=== PATIENT | female | born 1950 | race Caucasian/White ===

== ENCOUNTER 2017-04-16 08:23 | Day surgery (SDC) | payer MEDICARE ==
[2017-04-12 15:21] VITALS: BMI 27.1
[~2017-04-16 08:23] MED LIST: LACTATED RINGERS 1,000 ML IV SCH
[2017-04-16 08:49] VITALS: TEMP 97.8
[2017-04-16] MEDS ORDERED: LIDOCAINE 1% 20 ML VIAL (10MG/ML) FOR IV START INTRADERMA ONE (08:58)
[2017-04-16] MEDS ORDERED: PROPOFOL 10 MG/ML 20 ML VIAL IV ONE (09:31)
[2017-04-16] MEDS ORDERED: LIDOCAINE 1% INJ 10MG/ML (20 ML MDV) ONE (09:31)
--- NOTE | 2017-04-16 09:59 | P.PCN ---
Date of Procedure: 04/16/17 Preoperative Diagnosis: Postoperative Diagnosis: Procedure(s) Performed: Procedure: Total colonoscopy. Preoperative diagnosis: Screening for neoplasia, patient has family history of colon cancer in her father. Postoperative diagnosis: Exam within normal limits. Preparation: HalfLytely prep. Sedation: Was provided by anesthesia. Brief clinical history: The patient is a 66-year-old female who is scheduled for this evaluation for screening for neoplasia because of family history of colon cancer in her dad. Her last examination was in July 2010. She has no abdominal complaints, bleeding or anemia. Procedure: With the patient on her left lateral decubitus position and after informed consent and adequate sedation, the perianal area was inspected and it did not show any fissures or fistulas. There were no masses felt on digital rectal examination. The Olympus CFQ 160L video colonoscope was then inserted in the rectum in the usual fashion and advanced to the cecum. The preparation was good, the mucosa appeared healthy. No polyps or tumors were seen or any obvious diverticular disease or other pathology. I retroflexed the endoscope in the rectum before the endoscope was withdrawn. The patient tolerated the procedure well. Plan: The patient was reassured. She will follow-up with you as planned and I recommended repeat exam in 5 years. Implants: Indications for Procedure: Operative Findings: Description of Procedure:
[2017-04-16 10:46] VITALS: BP 170/88; PULSE 60; RESP 18
== END 2017-04-16 10:47 | disposition home or self-care (01) ==
LOC: ORWHC2ENDO 08:23
DX: Z12.11 Encounter for screening for malignant neoplasm of colon (principal); Z80.0 Family history of malignant neoplasm of digestive organs; I10 Essential (primary) hypertension; E78.5 Hyperlipidemia, unspecified; Z91.030 Bee allergy status; Z79.899 Other long term (current) drug therapy
CPT/HCPCS: J2001; J2704; G0105

== ENCOUNTER → 2017-04-22 | Outpatient (CLI) | payer MEDICARE ==
--- NOTE | 2017-04-23 10:51 | MM ---
Reason for exam: screening (asymptomatic). Last mammogram was performed 1 year ago. History: Patient is postmenopausal. Family history of breast cancer in maternal aunt at age 50 and breast cancer in cousin at age 50. Took estrogen for 10 years beginning at age 35. Physical Findings: A clinical breast exam by your physician is recommended on an annual basis and results should be correlated with mammographic findings. MG 3D Screening Mammo W/Cad Bilateral CC and MLO view(s) were taken. Prior study comparison: April 16, 2016, bilateral MG 3d screening mammo w/cad. March 25, 2014, bilateral MG screening mammo w CAD. The breast tissue is heterogeneously dense. This may lower the sensitivity of mammography. No significant changes when compared with prior studies. ASSESSMENT: Benign, BI-RAD 2 RECOMMENDATION: Routine screening mammogram of both breasts in 1 year.
== END | disposition home or self-care (01) ==
LOC: RADMAMWWP 11:20
PROVIDERS: ATTEND Family Medicine
DX: Z12.31 Encounter for screening mammogram for malignant neoplasm of breast (principal)
CPT/HCPCS: 77063; G0202

== ENCOUNTER → 2019-04-14 | Outpatient (CLI) | payer MEDICARE ==
--- NOTE | 2019-04-14 10:08 | MM ---
Reason for exam: screening (asymptomatic). Last mammogram was performed 2 years ago. History: Patient is postmenopausal. Family history of breast cancer in maternal aunt at age 50 and breast cancer in cousin at age 50. Took estrogen for 10 years beginning at age 35. Physical Findings: A clinical breast exam by your physician is recommended on an annual basis and results should be correlated with mammographic findings. MG 3D Screening Mammo W/Cad Bilateral CC and MLO view(s) were taken. Prior study comparison: April 22, 2017, bilateral MG 3d screening mammo w/cad. April 16, 2016, bilateral MG 3d screening mammo w/cad. The breast tissue is heterogeneously dense. This may lower the sensitivity of mammography. Architectural distortion in right upper outer quadrant at middle and posterior depth and left upper outer quadrant at posterior depth. ASSESSMENT: Incomplete: need additional imaging evaluation, BI-RAD 0 RECOMMENDATION: Special view mammogram and ultrasound of both breasts. [facility] will attempt to contact patient to return for supplemental views and ultrasound.
== END | disposition home or self-care (01) ==
LOC: RADMAMWWP 07:55
PROVIDERS: ATTEND Family Medicine
DX: Z12.31 Encounter for screening mammogram for malignant neoplasm of breast (principal)
CPT/HCPCS: 77063; 77067

== ENCOUNTER → 2019-04-23 | Outpatient (CLI) | payer MEDICARE ==
--- NOTE | 2019-04-24 08:14 | MM ---
Reason for exam: additional evaluation requested from abnormal screening. Last mammogram was performed less than 1 month ago. History: Patient is postmenopausal. Family history of breast cancer in maternal aunt at age 50 and breast cancer in cousin at age 50. Took estrogen for 10 years beginning at age 35. Physical Findings: Nurse did not find any significant physical abnormalities on exam. MG 3D Work Up W/Cad BERRY Bilateral spot compression CC, spot compression MLO, and LM view(s) were taken. Prior study comparison: April 14, 2019, bilateral MG 3d screening mammo w/cad. April 22, 2017, bilateral MG 3d screening mammo w/cad. The breast tissue is heterogeneously dense. This may lower the sensitivity of mammography. Focal asymmetry middle right CC view, upper outer quadrant, posterior on left MLO view. This finding is changed when compared with previous exams. These results were verbally communicated with the patient and result sheet given to the patient on 04/23/19. ASSESSMENT: Suspicious, BI-RAD 4 RECOMMENDATION: Surgical consultation, breast MRI, and stereotactic core biopsy of both breasts. (3D) Patient will follow up in [place] with surgeon.
--- NOTE | 2019-04-24 08:16 | USB ---
Reason for exam: additional evaluation requested from abnormal screening. History: Patient is postmenopausal. Family history of breast cancer in maternal aunt at age 50 and breast cancer in cousin at age 50. Took estrogen for 10 years beginning at age 35. US Breast Workup Limited BERRY Right limited breast ultrasound including focal area of concern, retroareolar and axilla demonstrates a 0.4 x 0.3 x 0.4cm cystic lesion at 12 o'clock. Left limited breast ultrasound including focal area of concern, retroareolar and axilla demonstrates no cystic or solid lesion seen. These results were verbally communicated with the patient and result sheet given to the patient on 04/23/19. ASSESSMENT: Benign, BI-RAD 2 RECOMMENDATION: Surgical consultation, breast MRI, and stereotactic core biopsy of both breasts. (3D) Patient will follow up in [place] with surgeon.
== END | disposition home or self-care (01) ==
LOC: RADMAMWWP 14:14
PROVIDERS: ATTEND Family Medicine
DX: R92.8 Other abnormal and inconclusive findings on diagnostic imaging of breast (principal)
CPT/HCPCS: 77066; 76642; G0279; 77062

== ENCOUNTER → 2019-04-30 | Outpatient (CLI) | payer MEDICARE ==
[2019-04-30 11:26] VITALS: BP 162/88; PULSE 68; RESP 18; TEMP 97.9; BMI 26.7
--- NOTE | 2019-04-30 12:25 | P.GSHP ---
History of Present Illness H&P Date: 04/30/19 Chief Complaint: Abnormal mammogram bilateral The patient is a 68 -year-old white female status post bilateral mammogram performed on [id number]. Initially it was recommended that she undergo a bilateral breast MRI and bilateral stereotactic core biopsies. The patient's radiographs were reviewed with the radiologist felt that there were no lesions of concern to warrant biopsy at this time and an MRI was not warranted either. It was recommended that she undergo bilateral repeat mammograms in 6 months. The had not had a mammogram for 2 years. The patient does not feel anything of concern in her breast at this time. The patient is a resident of [place] and will most likely have her repeat radiographs done in [place]. Family History: maternal aunt: of breast cancer (60's) maternal cousin(two): of breast cancer ( in 60's) patient: pre-cancer lip Hormonal History; menarche: 13 breast fed: yes, first at 19 menopause: hysterctomy at 45 for atypical cells, took both ovaries BCP: 15 years hormones: none Past surgical history: 1. Hysterectomy bilateral oophorectomy 2. Tonsillectomy Medical History: 1. HTN 2. high cholesterol Social history: Smoke: stopped 28 years ago alcohol: occasional drugs; none - Constitutional Constitutional: Denies chills, Denies fever - EENT Eyes: denies blurred vision, denies pain Ears: bilateral: decreased hearing, tinnitus Ears, nose, mouth and throat: Denies headache, Denies sore throat - Breasts Breasts: bilateral: as per HPI - Cardiovascular Cardiovascular: Denies chest pain, Denies shortness of breath - Respiratory Respiratory: Denies cough, Denies 7 - Gastrointestinal Gastrointestinal: Denies abdominal pain, Denies diarrhea, Denies nausea, Denies vomiting - Genitourinary (Female) Comment: UTI in past Genitourinary: Denies dysuria, Denies hematuria - Menstruation Menstruation: Reports post hysterectomy - Musculoskeletal Comment: arthritis in hands - Integumentary Integumentary: Reports pruritus, Reports rash - Neurological Comment: weak right leg and foot - Psychiatric Psychiatric: Denies anxiety, Denies depression - Endocrine Endocrine: Denies fatigue, Denies weight change - Hematologic/Lymphatic Comment: none - Allergic/Immunologic Allergic/Immunologic: Reports seasonal allergies Past Medical History Past Medical History: Hyperlipidemia, Hypertension Additional Past Medical History / Comment(s): UTI with Kidney infection January 2017 History of Any Multi-Drug Resistant Organisms: None Reported Past Surgical History: Hysterectomy, Tonsillectomy Past Anesthesia/Blood Transfusion Reactions: No Reported Reaction Smoking Status: Former smoker Past Alcohol Use History: Occasional Additional Past Alcohol Use History / Comment(s): quit smoking ,smoked approx 20 yrs <1ppd Past Drug Use History: None Reported - Past Family History Mother Additional Family Medical History / Comment(s): heart problems Father Family Medical History: Cancer Additional Family Medical History / Comment(s): prostate Sister(s) Family Medical History: Hyperlipidemia, Hypertension Brother(s) Family Medical History: Hyperlipidemia, Hypertension Medications and Allergies Home Medications Medication Instructions Recorded Confirmed Type Atorvastatin Calcium [Lipitor] 40 mg PO DAILY 04/12/17 04/30/19 History Lisinopril [Prinivil] 10 mg PO QAM 04/12/17 04/30/19 History Multivitamins, Thera [Multivitamin 1 tab PO DAILY 04/12/17 04/30/19 History (formulary)] Allergies Allergy/AdvReac Type Severity Reaction Status Date / Time bee sting Allergy Swelling Uncoded 04/30/19 11:21 Surgical - Exam Vital Signs Temp Pulse Resp BP Pulse Ox 97.9 F 68 18 162/88 97 04/30/19 11:23 04/30/19 11:23 04/30/19 11:23 04/30/19 11:23 04/30/19 11:23 BMI 26.7 - General well developed, well nourished, no distress - Eyes normal ocular movement - ENT no hearing loss, no congestion - Neck no masses, trachea midline - Respiratory normal respiratory effort, clear to auscultation - Cardiovascular Rhythm: regular Heart Sounds: normal: S1, S2 - Abdomen Abdomen: soft, non tender, no guarding, no rigid, no rebound - Neurologic no disoriented, no combative - Musculoskeletal normal gait - Psychiatric oriented to time, oriented to person, oriented to place, speech is normal, memory intact breast exam: Right breast: Multi-positional exam fibrocystic changes no dominant masses or nodules of concern Right axilla: No adenopathy of concern Left breast: Multiple positional exam no dominant masses or nodules of concern Left axilla: No adenopathy of concern Results Mammogram reviewed Assessment and Plan Assessment: Impression: 1. Fibrocystic breast changes 2. Radiographic abnormality bilateral breast seems to be stable for repeat bilateral mammogram in 6 months 3. Hypertension 4. High cholesterol 5. Family history of breast cancer Plan: 1. Patient to have repeat bilateral mammogram in 6 months time 2. Medical management of medical conditions CC:Dr Karen Treadwell
== END | disposition home or self-care (01) ==
LOC: WWCWWP 11:01
PROVIDERS: ATTEND Surgery
DX: Z53.9 Procedure and treatment not carried out, unspecified reason (principal)

== ENCOUNTER 2023-07-05 07:28 | Day surgery (SDC) | payer MEDICARE ==
[2023-07-05 07:56] VITALS: TEMP 97.4
[2023-07-05] MEDS ORDERED: PROPOFOL 10 MG/ML 20 ML VIAL IV ONE (08:18)
[2023-07-05] MEDS ORDERED: LIDOCAINE 1% INJ 10MG/ML (20 ML MDV) ONE (08:18)
--- NOTE | 2023-07-05 08:38 | P.PCN ---
Date of Procedure: 07/05/23 Procedure(s) Performed: BRIEF HISTORY: Patient is a 73-year-old pleasant white female scheduled for an elective colonoscopy as a part of screeningf or colon cancer and family history of colon cancer. Her father was diagnosed with colon cancer at age 71. PROCEDURE PERFORMED: Colonoscopy. PREOPERATIVE DIAGNOSIS: Screening for colon cancer and family history of colon cancer. IV sedation per Anesthesia. PROCEDURE: After informed consent was obtained, the patient, was brought into the endoscopy unit. IV sedation was administered by Anesthesia under continuous monitoring. Digital rectal examination was normal. Initially the Olympus CF-160 flexible video colonoscope was then inserted in the rectum, gradually advanced into the cecum without any difficulty. Careful examination was performed as the scope was gradually being withdrawn. Ileocecal valve and the appendiceal orifice were visualized and appeared normal. Prep was excellent. Mucosa of the cecum, ascending colon, transverse colon, descending colon, sigmoid colon, and rectum appeared normal. Retroflexion was performed in the rectum and no lesions were seen. The patient tolerated the procedure well. IMPRESSION: Normal-appearing colon from rectum to cecum with no evidence of colorectal neoplasia . RECOMMENDATIONS: Findings of this examination were discussed with the patient as well as a family. She was advised to have a repeat screening colonoscopy in 5 years because of the family..
[2023-07-05 09:06] VITALS: BP 146/84; PULSE 60; RESP 20
== END 2023-07-05 09:16 ==
LOC: ORWHC2ENDO 07:28
PROVIDERS: ATTEND Internal Medicine Gastroenterology
DX: Z12.11 Encounter for screening for malignant neoplasm of colon (principal); I10 Essential (primary) hypertension; E78.5 Hyperlipidemia, unspecified; K21.9 Gastro-esophageal reflux disease without esophagitis; Z98.890 Other specified postprocedural states; Z80.0 Family history of malignant neoplasm of digestive organs; Z79.899 Other long term (current) drug therapy
CPT/HCPCS: J2001; J2704; G0105